=== PATIENT | female | born 1990 | race Caucasian/White ===

== ENCOUNTER 2016-08-17 10:15 | Emergency (ER) | payer OTHER ==
[~2016-08-17] VITALS: Ht 165.1 cm; Wt 59.1 kg
[~2016-08-17 10:15] MED LIST: FIORINAL PO; ZOL50 PO
[2016-08-17 10:25] VITALS: BP 141/89; PULSE 117; RESP 15; O2SAT 99
--- NOTE | 2016-08-17 10:51 | ED.REPORT ---
HPI-Rash / Abscess Date of Service Aug 17, 2016 ED Provider: Florentino Chavarria MD Chacha is a 25-year-old female with a history of injection drug use who presents to the emergency department with chief complaint of possible abscess in her left wrist. Reports 2 day history of redness, swelling, pain and left wrist. Denies systemic symptoms such as fever, chills, abdominal pain, vomiting. Reports malaise which she associates with discontinuation of heroin. Denies medical history. Nursing Notes Stated Complaint: WRIST ABSCESS Chief Complaint: Skin Rash/Abscess Nursing Notes Reviewed: Yes Allergies: Coded Allergies: No Known Allergies (Verified , 04/26/13) Scheduled ASA/Caff/But--Expunged Drug, Do Not Renew! (Fiorinal-Expunged Drug, Do Not Renew !) 1 Tab Tablet 1 TAB PO PRN Cephalexin (Cephalexin) 500 Mg Capsule 500 MG PO QID Sulfamethoxazole/Trimeth 800-160 mg (Bactrim DS) 1 Each Tablet 1 TABLET PO BID Miscellaneous Medications Sertraline-Expunged Drug, Choose New Med! (Sertraline-Expunged Drug, Choose New Med!) 50 Mg Tab 50 MG PO General Time Seen by MD: 10:51 Chief Complaint Abscess Past Medical History Past Medical History Currently 29 weeks Past Surgical History None Family History Reviewed, not pertinent Social History Drug Use: In recovery Ambulatory Status Independent Review of Systems Review of Systems Note: Negative unless stated otherwise in history of present illness Physical Exam General: Well appearing, well developed, well nourished, no acute distress. Left wrist: Slight erythema, swelling, tenderness surrounding a small healing puncture wound near the ulnar styloid. No lymphangitis, exudate, induration, fluctuance Head: Atraumatic, normocephalic. Eyes: No scleral icterus or injection. No discharge. Vision grossly intact. ENT: Voice clear, hearing grossly intact. Respiratory: No respiratory distress, no increased work of breathing. Speaks in complete sentences. Skin: Warm and dry. Neurological: Grossly nonfocal. Psychological: alert and oriented. Speech appropriate, linear and logical. Behavior appropriate. Initial Vital Signs Vital Signs (First) Date Time Temp Pulse Resp B/P Pulse Ox O2 Delivery O2 Flow Rate FiO2 08/17/16 10:25 36.4 117 15 141/89 99 Room Air Heart rate measured at 100 bpm during physical examination at 12:15 Initial VS: Reviewed, Vital signs abnormal (tachycardia) Re-Eval/Medical Decision Med Decision/Clinical Course Patient expresses concern that this information not be shared with her primary care provider due to the sensitive nature of the etiology. I assured her I would not copy her primary care provider on the note, however I also told her I would have to document the likely cause of her infection. She agreed to that plan. Discharge & Departure Impression: Primary Impression: Cellulitis Site of cellulitis: extremity Site of cellulitis of extremity: upper extremity Laterality: left Qualified Code: L03.114 - Cellulitis of left upper limb Disposition: Home Discharge Condition All VS Reviewed: Yes Condition: Stable Patient Instructions: Cellulitis (ED) Additional Instructions: Evaluation for a possible wrist abscess in the emergency department. Could not detect any abscess on physical examination, but there was an area of redness and swelling suggestive of a mild cellulitis. You described no symptoms that I find concerning for systemic illness such as sepsis. I think this is a mild cellulitis that we can treat with oral antibiotics. I will write a prescription for 2 different kinds of medications. Please take them as directed for the full 7 days, even if symptoms have resolved. The pain is best treated with 400 mg of ibuprofen (Advil, Motrin) every 6 hours, or 1000 mg of acetaminophen (Tylenol) every 6 hours. These drugs can be taken at the same time for more severe pain. Please follow-up with your primary care physician in 3 or 4 days to be sure this is progressing as expected. Return to emergency department for any new or worsening symptoms including increasing pain, redness , swelling, red streaks, fever, cold sweats, racing heart or feeling ill. Please continue to work on stopping your heroin use. I suggested re-engaging with ideal option. Referrals: Grover Means MD (PCP) EDSupervising Provider for APC: Florentino Chavarria MD Attending Statement Attending attestation: I saw this patient in conjunction with Mook Sabillon PA-C. I agree with the workup, evaluation, treatment and disposition. Florentino Alva MD, MD Aug 17, 2016 10:51 Mook Sabillon PA-C Aug 17, 2016 12:28
[2016-08-17] MEDS ORDERED: CEPH500C PO (12:29)
[2016-08-17] MEDS ORDERED: SULF1TAB7 PO (12:29)
== END 2016-08-17 12:44 | disposition home or self-care (01) ==
LOC: SED 10:15
DX: O99.713 Diseases of the skin and subcutaneous tissue complicating pregnancy, third trimester (principal); L03.114 Cellulitis of left upper limb; Z3A.29 29 weeks gestation of pregnancy